=== PATIENT | male | born 2000 | race Two or more races ===

== ENCOUNTER 2025-01-01 22:54 | Emergency (ER) | payer SELFPAY ==
[~2025-01-01] VITALS: Ht 172.7 cm; Wt 70.0 kg
[2025-01-01 22:55] VITALS: BP 116/78; PULSE 90; RESP 16; TEMP 36.8; O2SAT 99
[2025-01-02] MEDS: CEFTRIAXONE SODIUM 500MG VIAL IM ONE (02:48)
== END 2025-01-02 03:45 | disposition left against medical advice (07) ==
LOC: ER 22:54
DX: Z00.8 Encounter for other general examination (principal); J45.909 Unspecified asthma, uncomplicated
CPT/HCPCS: 99283